=== PATIENT | female | born 2000 | race African-American/Black ===

== ENCOUNTER 2020-03-17 18:14 | Emergency (ER) | payer OTHER ==
[~2020-03-17] VITALS: Ht 160 cm; Wt 73.5 kg
[2020-03-17] MEDS ORDERED: MOBIC7.5 MG PO (21:06)
[2020-03-17 21:07] VITALS: BP 123/65
[2020-03-17] MEDS ORDERED: BUTALB-APAP-CA1 EACH PO (21:13)
== END 2020-03-17 21:28 | disposition home or self-care (01) ==
LOC: ER 18:14
DX: S06.0X0A Concussion without loss of consciousness, initial encounter (principal); R20.2 Paresthesia of skin; Y04.2XXA Assault by strike against or bumped into by another person, initial encounter; Y93.89 Activity, other specified; Y92.89 Other specified places as the place of occurrence of the external cause; Y99.8 Other external cause status